=== PATIENT | female | born 1985 | race American Indian/Alaskan Native ===

== ENCOUNTER 2016-10-01 01:45 | Emergency (ER) | payer MEDICAID ==
--- NOTE | 2016-10-01 07:47 | Emergency Department Report ---
HPI - General Chief Complaint: Sore Throat - HPI HPI: 31-year-old -[place] female comes in for complaint of throat hurts. Patient reports had a sore throat for 2 weeks multitude the right side as well as right ear pain that feels like pressure and achy worse with swallowing. Patient denies any nausea vomiting she subjectively admits to a fever she did have sick contacts he has not traveled her last menses was 09/18/2016. She does report that the Motrin helped one was given in triage at 2300 yesterday. He has no known drug allergies. She reports that the pain is severe she rates it 10 out of 10 worse with swallowing. ED Past Medical Hx - Past Medical History Previous Medical History?: Yes Additional medical history: Childbirth-vaginal delivery 06-01-2009, 10-10-2014 - Surgical History Past Surgical History?: No - Social History Smoking Status: Current Every Day Smoker Substance Use Type: Marijuana - Medications Home Medications: Home Medications Medication Instructions Recorded Confirmed Last Taken Type predniSONE [Deltasone] 50 mg PO QDAY #3 tab 09/13/13 Unknown Rx Amoxicillin [Trimox CAP] 500 mg PO Q8H #30 capsule 06/17/14 Unknown Rx Acetaminophen/Codeine [Tylenol #3] 1 tab PO Q6H PRN #12 tab 10/01/16 Unknown Rx Amoxicillin [Amoxicillin TAB] 875 mg PO BID #20 tablet 10/01/16 Unknown Rx Ibuprofen [Motrin 800 MG tab] 800 mg PO Q8HR PRN #30 tablet 10/01/16 Unknown Rx ED Review of Systems ROS: Stated complaint: THROAT PAIN/CONGESTED Other details as noted in HPI Constitutional: fever ENT: ear pain, throat pain Respiratory: denies: cough, shortness of breath, wheezing Cardiovascular: denies: chest pain, palpitations Endocrine: no symptoms reported Gastrointestinal: denies: abdominal pain, nausea, diarrhea Genitourinary: denies: urgency, dysuria, discharge Musculoskeletal: denies: back pain, joint swelling, arthralgia Skin: denies: rash, lesions Physical Exam - Physical Exam Vital Signs: Vital Signs 10/01/16 10/01/16 02:02 02:03 Temperature 99 F 99 F Pulse Rate 104 H 104 H Respiratory 22 22 Rate Blood Pressure 120/78 Blood Pressure 120/78 [Right] O2 Sat by Pulse 100 100 Oximetry Physical Exam: GENERAL: Alert and oriented x3, no apparent distress, Normal Gait, atraumatic. HEAD: Head is normocephalic and a-traumatic. EYES: Extra ocular muscles are intact. Pupils are equal, round, and reactive to light and accommodation. EARS: symetrical, atraumatic, non tender, ear canal clear and moderate cerumen, tympanic membrance non inflamed. gross auditory nml bilaterally. NOSE: Nose symetrical, Nontender,Nares appeared normal. MOUTH:Mouth is well hydrated and without lesions. Tonsils erythematous and swollen, Uvula midline, Tongue not elevated. Mucous membranes are moist. Posterior pharynx clear, with exudate . Patent airways. NECK: Supple. Non edematous, No carotid bruits. + lymphadenopathy - thyromegaly. LUNGS: Symetrical with respiration, No wheezing, no rales or crackles, CTAB. HEART: S1, S2 present, regular rate and rhythm without murmur, no rubs, no gallops. ABDOMEN: No organomegaly was noted,Positive bowel sounds, soft, and non- distended. . Nontender to palpation on all Quadrants, NO CVA tenderness. NEUROLOGIC: No focal Deficit, Cranial nerves II through XII are grossly intact. No loss of sensation, No facial droop, PSYCHIATRIC: Mood is congruent with affect, SKIN: Warm and dry, No lesions, No ulceration or induration present ED Course Vital Signs 10/01/16 10/01/16 02:02 02:03 Temperature 99 F 99 F Pulse Rate 104 H 104 H Respiratory 22 22 Rate Blood Pressure 120/78 Blood Pressure 120/78 [Right] O2 Sat by Pulse 100 100 Oximetry ED Medical Decision Making - Medical Decision Making Patient's been evaluated by this provider in fast track. Discusses patient that we will treat her for pharyngitis with antibiotics. Patient requested pain injection. Patient did drive so we will give her a Toradol shot instead of Tylenol with Codeine. Discussed the patient will discharge her on amoxicillin 875 mg by mouth twice a day for 10 days. As well as ibuprofen 800 mg 1 tablet by mouth 3 times a day when necessary and Tylenol No. 3 one tablet by mouth every 6 hours for breakthrough pain. We will only dispense 12 of those. Patient verbalized understanding Critical care attestation.: If time is entered above; I have spent that time in minutes in the direct care of this critically ill patient, excluding procedure time. ED Disposition Clinical Impression: Pharyngitis Qualifiers: Pharyngitis/tonsillitis etiology: unspecified etiology Qualified Code(s): J02.9 - Acute pharyngitis, unspecified Disposition: DISCHARGED TO HOME OR SELFCARE Is pt being admited?: No Does the pt Need Aspirin: No Condition: Stable Instructions: Pharyngitis (ED) Additional Instructions: Complete antibiotics as prescribed ibuprofen for pain as well as Tylenol 3 for breakthrough pain. Very importantly to follow-up with her primary care doctor in 3-5 days to reassess you. Prescriptions: Acetaminophen/Codeine [Tylenol #3] 1 tab PO Q6H PRN #12 tab PRN Reason: Pain Amoxicillin [Amoxicillin TAB] 875 mg PO BID #20 tablet Ibuprofen [Motrin 800 MG tab] 800 mg PO Q8HR PRN #30 tablet PRN Reason: Pain Referrals: NAE TARANGO MD [Primary Care Provider] - 3-5 Days Forms: Work/School Release Form(ED)
[2016-10-01] MEDS: TORADOL IM ONE (07:50)
[2016-10-01 07:51] VITALS: BP 117/66
== END 2016-10-01 08:14 | disposition home or self-care (01) ==
LOC: ED 01:45
DX: J02.9 Acute pharyngitis, unspecified (principal); F17.200 Nicotine dependence, unspecified, uncomplicated; F12.10 Cannabis abuse, uncomplicated
CPT/HCPCS: 96372; 99282; J1885